=== PATIENT | female | born 1975 | race Two or more races ===

== ENCOUNTER 2018-12-05 18:09 | Emergency (ER) | payer SELFPAY ==
[~2018-12-05] VITALS: Ht 160 cm; Wt 77.3 kg
[2018-12-05] MEDS ORDERED: DIAZEPAM 5 MG TABLET PO ONE (21:45)
[2018-12-05] MEDS ORDERED: ONDANSETRON HCL 4 MG TABLET PO ONE (21:45)
[2018-12-05] MEDS ORDERED: KETOROLAC TROMETHAMINE 60 MG/2 ML VIAL IM ONE (21:45)
[2018-12-05 22:10] VITALS: BP 140/82
== END 2018-12-05 22:17 | disposition home or self-care (01) ==
LOC: EMS 18:10
DX: S16.1XXA Strain of muscle, fascia and tendon at neck level, initial encounter (principal); S39.012A Strain of muscle, fascia and tendon of lower back, initial encounter; S46.912A Strain of unspecified muscle, fascia and tendon at shoulder and upper arm level, left arm, initial encounter; Z88.0 Allergy status to penicillin; V49.9XXA Car occupant (driver) (passenger) injured in unspecified traffic accident, initial encounter; Y93.89 Activity, other specified; Y92.89 Other specified places as the place of occurrence of the external cause; Y99.8 Other external cause status
CPT/HCPCS: 72040; 72100; 81025; 96372; 99283; J1885; Q0162

== ENCOUNTER 2021-10-28 17:46 | Emergency (ER) | payer OTHER ==
[~2021-10-28] VITALS: Ht 154.9 cm; Wt 81.8 kg
[2021-10-28] MEDS ORDERED: KETOROLAC TROMETHAMINE 30 MG/ML VIAL IVP ONE (18:30)
[2021-10-28] MEDS ORDERED: DiphenhydrAMINE HCL 50 MG/ML VIAL IVP ONE (18:30)
[2021-10-28] MEDS ORDERED: METOCLOPRAMIDE HCL 5 MG/ML 2 ML VIAL IVP ONE (18:30)
[2021-10-28] MEDS ORDERED: SODIUM CHLORIDE 0.9% 1,000 ML IV ONE (18:30)
[2021-10-28] MEDS ORDERED: LORazepam 2 MG/ML VIAL IVP ONE (18:30)
[2021-10-28] MEDS ORDERED: LORazepam 1 MG TABLET PO ONE (18:30)
[2021-10-28 20:04] VITALS: BP 119/67
== END 2021-10-28 20:27 | disposition home or self-care (01) ==
LOC: EMS 17:46
DX: R51.9 Headache, unspecified (principal); F41.9 Anxiety disorder, unspecified; Z88.0 Allergy status to penicillin
CPT/HCPCS: 99284; 96374; 70450; 96375; 96361; J1200; J1885; J2765; J7030